=== PATIENT | female | born 1955 | race Caucasian/White ===

== ENCOUNTER 2017-08-26 13:49 | Inpatient (IN) | payer MEDICAID, OTHER ==
[~2017-08-26] VITALS: Ht 152.4 cm; Wt 68.5 kg
[2017-08-26 14:54] LABS: Basophils # (auto) 0.1 uL; Basophils % (auto) 0.3 % (0.0-2.0); Eosinophils # (auto) 0.1 uL; Eosinophils % (auto) 0.4 % (0.0-7.0); Hematocrit 40.4 % (36.0-46.0); Hemoglobin 13.1 g/dL (12.2-16.2); Lymphocytes # (auto) 2.8 uL; Lymphocytes % (auto) 9.8 % (10.0-50.0); Mean Corpuscular Hemoglobin 29.7 pg (28.0-32.0); Mean Corpuscular Hgb Conc. 32.4 g/dL (32.0-36.0); Mean Corpuscular Volume 91.8 fL (80.0-100.0); Monocytes # (auto) 1.9 uL; Monocytes % (auto) 6.5 % (0.0-12.0); Neutrophils # (auto) 23.8 uL; Platelet Count (auto) 301 10^3/uL (140-450); Red Cell Distribution Width 14.6 % (11.8-14.3); White Blood Cell 28.6 10^3/uL (4.4-10.8)
[2017-08-26] MEDS ORDERED: IPRATROPIUM BROM 0.5 MG/2.5ML INH SOL HHN ONE (15:15)
[2017-08-26] MEDS ORDERED: ALBUTEROL SULF 2.5 MG/0.5ML(0.5%) NEB SOLN HHN ONE (15:15)
[2017-08-26] MEDS ORDERED: cefTRIAXone 1GM/10ml IVPUSH 10 ML IV ONE (15:15)
[2017-08-26] MEDS ORDERED: methylPREDNISolone SOD SUCC 125 MG/2 ML VL IV ONE (15:15)
[2017-08-26 16:18] LABS: Alanine Aminotransferase 24 U/L (13-56); Albumin 3.5 g/dL (3.4-5.0); Anion Gap 11 (5-15); Aspartate Aminotransferase 21 U/L (15-37); BUN/Creatinine Ratio 15.9; Blood Urea Nitrogen 10 mg/dL (7-18); Calcium 8.9 mg/dL (8.5-10.1); Carbon Dioxide 26 mmol/L (21-32); Chloride 103 mmol/L (98-107); GFR African American 124 mL/min; GFR Non-African American 102 mL/min; Glucose 100 mg/dL (74-106); Sodium 140 mmol/L (136-145)
[2017-08-26 16:23] LABS: Alkaline Phosphatase 96 U/L (45-117); Total Protein 6.7 g/dL (6.4-8.2)
[2017-08-26] MEDS: SODIUM CHLORIDE 0.9% 1,000 ML IV SCH (17:41)
[2017-08-26] MEDS ORDERED: MORPHINE SULFATE 8mg/ml INJ SDV IV PRN ×2 (17:45)
[2017-08-26] MEDS ORDERED: ACETAMINOPHEN 500 MG TAB PO PRN (17:45)
[2017-08-26] MEDS ORDERED: TEMAZEPAM 15 MG CAP PO PRN (17:45)
[2017-08-26] MEDS ORDERED: VANCOMYCIN PER PHARMACY 0 MG IV SCH (17:45)
[2017-08-26] MEDS ORDERED: VANCOMYCIN 1GM/250ML 250 ML IV ONE (17:45)
[2017-08-26] MEDS ORDERED: LORazepam 0.5 MG TAB PO PRN (17:45)
[2017-08-26] MEDS ORDERED: NITROGLYCERIN 0.4 MG SL TAB SL PRN (17:45)
[2017-08-26] MEDS ORDERED: HYDROcodone-ACET 5/325MG TAB PO PRN (17:45)
[2017-08-26] MEDS ORDERED: PROMETHAZINE HCL 25 MG/ML 1ML IV PRN (17:45)
[2017-08-26] MEDS ORDERED: LACTULOSE 20Gm/30ML SOLN PO PRN (17:45)
[2017-08-26] MEDS: methylPREDNISolone SOD SUCC 40 MG/ML VL IV SCH (18:00)
[2017-08-26] MEDS: IPRATROPIUM BROM 0.5 MG/2.5ML INH SOL NEB SCH (18:34)
[2017-08-26] MEDS: ALBUTEROL SULF 2.5 MG/0.5ML(0.5%) NEB SOLN NEB SCH (18:34)
[2017-08-26 20:15] VITALS: BP 106/59
[2017-08-26] MEDS: AZITHROMYCIN 500MG/ 250ML 250 ML IV SCH (21:15)
[2017-08-26] MEDS: ALBUTEROL SULF 2.5 MG/0.5ML(0.5%) NEB SOLN NEB PRN (21:23)
[2017-08-27] MEDS: methylPREDNISolone SOD SUCC 40 MG/ML VL IV SCH ×4 (00:23→18:28)
[2017-08-27] MEDS: IPRATROPIUM BROM 0.5 MG/2.5ML INH SOL NEB SCH ×5 (00:49→23:33)
[2017-08-27] MEDS: ALBUTEROL SULF 2.5 MG/0.5ML(0.5%) NEB SOLN NEB SCH ×5 (00:49→23:33)
[2017-08-27 01:11] LABS: Urine Bacteria MOD /hpf (None Seen); Urine Blood Negative /uL (Negative); Urine Mucus FEW (None Seen); Urine WBC 6 /hpf (0 - 5)
[2017-08-27] MEDS: ALBUTEROL SULF 2.5 MG/0.5ML(0.5%) NEB SOLN NEB PRN (04:38)
[2017-08-27] MEDS ORDERED: VANCOMYCIN 1GM/250ML 250 ML IV SCH (06:00)
[2017-08-27] MEDS: SODIUM CHLORIDE 0.9% 1,000 ML IV SCH ×2 (06:26→20:21)
[2017-08-27 06:58] LABS: Basophils # (auto) 0 uL; Eosinophils # (auto) 0 uL; Hematocrit 37.8 % (36.0-46.0); Lymphocytes # (auto) 0.6 uL; Lymphocytes % (auto) 3.1 % (10.0-50.0); Mean Corpuscular Hemoglobin 29.5 pg (28.0-32.0); Mean Corpuscular Hgb Conc. 31.9 g/dL (32.0-36.0); Mean Corpuscular Volume 92.7 fL (80.0-100.0); Monocytes # (auto) 0.2 uL; Monocytes % (auto) 1.2 % (0.0-12.0); Neutrophils # (auto) 18.9 uL; Neutrophils % (auto) 95.7 % (37.0-80.0); Platelet Count (auto) 261 10^3/uL (140-450); Red Blood Cells 4.08 10^6/uL (4.0-5.20); Red Cell Distribution Width 14.2 % (11.8-14.3); White Blood Cell 19.8 10^3/uL (4.4-10.8)
[2017-08-27] MEDS: cefTRIAXone 1GM/10ml IVPUSH 10 ML IV SCH (10:00)
[2017-08-27] MEDS: ENOXAPARIN SOD 40 MG/0.4 ML SYRINGE SC SCH (10:30)
[2017-08-27] MEDS: AZITHROMYCIN 500MG/ 250ML 250 ML IV SCH (10:30)
[2017-08-27 13:00] VITALS: BP 100/63
[2017-08-27 17:00] VITALS: BP 94/61
[2017-08-27] MEDS ORDERED: FLUT250M2 INH (19:00)
[2017-08-27] MEDS ORDERED: IPRA1SOL3 IN (19:17)
[2017-08-27] MEDS ORDERED: MIRT15TA PO (19:17)
[2017-08-27] MEDS ORDERED: NAS17NSL (19:17)
[2017-08-27] MEDS ORDERED: PAR20T GT (19:17)
[2017-08-27] MEDS ORDERED: LORA-622 PO (19:17)
[2017-08-27] MEDS ORDERED: TIOTCAP IN (19:17)
[2017-08-27 22:00] VITALS: BP 91/50
[2017-08-28] MEDS: methylPREDNISolone SOD SUCC 40 MG/ML VL IV SCH ×3 (00:19→12:06)
[2017-08-28 05:00] VITALS: BP 94/45
[2017-08-28] MEDS: IPRATROPIUM BROM 0.5 MG/2.5ML INH SOL NEB SCH ×3 (05:48→19:00)
[2017-08-28] MEDS: ALBUTEROL SULF 2.5 MG/0.5ML(0.5%) NEB SOLN NEB SCH ×3 (05:49→19:01)
[2017-08-28 06:04] LABS: Hematocrit 33.2 % (36.0-46.0); Hemoglobin 10.6 g/dL (12.2-16.2); Mean Corpuscular Hemoglobin 29.7 pg (28.0-32.0); Mean Corpuscular Volume 92.6 fL (80.0-100.0); Platelet Count (auto) 249 10^3/uL (140-450); Red Blood Cells 3.58 10^6/uL (4.0-5.20); Red Cell Distribution Width 14.5 % (11.8-14.3)
[2017-08-28 06:19] LABS: Basophils % (manual) 0 (0.0-2.0); Blast Cells 0; Eosinophils % (manual) 0 (0-7); Metamyelocytes % 0; Myelocytes % 0; Promyelocytes % 0; Reactive Lymphocytes 0
[2017-08-28 06:33] LABS: Albumin 2.6 g/dL (3.4-5.0); BUN/Creatinine Ratio 33.3; Bilirubin, Total 0.2 mg/dL (0.2-1.0); Calcium 8.5 mg/dL (8.5-10.1); Potassium 4.1 mmol/L (3.5-5.1); Total Protein 5.5 g/dL (6.4-8.2)
[2017-08-28 08:42] LABS: Band Neutrophils % (manual) 1; Lymphocytes % (manual) 1 (10.0-50.0); Monocytes % (manual) 2 (0-12)
[2017-08-28 09:03] VITALS: BP 91/55
[2017-08-28] MEDS: SODIUM CHLORIDE 0.9% 1,000 ML IV SCH ×2 (10:24→23:01)
[2017-08-28] MEDS: ENOXAPARIN SOD 40 MG/0.4 ML SYRINGE SC SCH (10:25)
[2017-08-28] MEDS: AZITHROMYCIN 500MG/ 250ML 250 ML IV SCH (10:25)
[2017-08-28] MEDS: cefTRIAXone 1GM/10ml IVPUSH 10 ML IV SCH (10:25)
[2017-08-28 13:05] VITALS: BP 106/60
[2017-08-28 16:55] VITALS: BP 98/59
[2017-08-28] MEDS: MIRTAZAPINE 30 MG TAB PO SCH (21:40)
[2017-08-28] MEDS: PARoxetine 20 MG TAB PO SCH (21:40)
[2017-08-28] MEDS: ALBUTEROL SULF 2.5 MG/0.5ML(0.5%) NEB SOLN NEB PRN (21:47)
[2017-08-28 22:00] VITALS: BP 97/55
[2017-08-28] MEDS ORDERED: guaiFENesin 200 MG/10 ML UD PO PRN (23:45)
[2017-08-29] MEDS: ACETYLCYSTEINE 10 %(100MG/ML) SOL 4ML NEB SCH ×4 (00:30→19:57)
[2017-08-29] MEDS: ALBUTEROL SULF 2.5 MG/0.5ML(0.5%) NEB SOLN NEB SCH ×4 (00:31→19:56)
[2017-08-29] MEDS: IPRATROPIUM BROM 0.5 MG/2.5ML INH SOL NEB SCH ×4 (00:31→19:56)
[2017-08-29 05:00] VITALS: BP 106/61
[2017-08-29 05:41] LABS: Basophils # (auto) 0 uL; Basophils % (auto) 0.1 % (0.0-2.0); Eosinophils # (auto) 0 uL; Hematocrit 30.1 % (36.0-46.0); Hemoglobin 9.8 g/dL (12.2-16.2); Lymphocytes # (auto) 1.6 uL; Lymphocytes % (auto) 6.4 % (10.0-50.0); Mean Corpuscular Hemoglobin 30.1 pg (28.0-32.0); Mean Corpuscular Hgb Conc. 32.5 g/dL (32.0-36.0); Mean Corpuscular Volume 92.7 fL (80.0-100.0); Monocytes # (auto) 1.5 uL; Monocytes % (auto) 5.8 % (0.0-12.0); Neutrophils # (auto) 22.3 uL; Neutrophils % (auto) 87.7 % (37.0-80.0); Platelet Count (auto) 253 10^3/uL (140-450); Red Blood Cells 3.25 10^6/uL (4.0-5.20); Red Cell Distribution Width 14.5 % (11.8-14.3); White Blood Cell 25.5 10^3/uL (4.4-10.8)
[2017-08-29 06:09] LABS: Albumin 2.5 g/dL (3.4-5.0); BUN/Creatinine Ratio 32.1; Bilirubin, Total 0.1 mg/dL (0.2-1.0); Calcium 8.4 mg/dL (8.5-10.1); Potassium 3.9 mmol/L (3.5-5.1); Total Protein 5.1 g/dL (6.4-8.2)
[2017-08-29 08:00] VITALS: BP 109/65
[2017-08-29 09:07] VITALS: BP 109/65
[2017-08-29] MEDS: methylPREDNISolone SOD SUCC 40 MG/ML VL IV SCH ×2 (09:43→21:51)
[2017-08-29] MEDS: cefTRIAXone 1GM/10ml IVPUSH 10 ML IV SCH (09:43)
[2017-08-29] MEDS: AZITHROMYCIN 500MG/ 250ML 250 ML IV SCH (09:44)
[2017-08-29] MEDS: ENOXAPARIN SOD 40 MG/0.4 ML SYRINGE SC SCH (09:44)
[2017-08-29] MEDS: SODIUM CHLORIDE 0.9% 1,000 ML IV SCH (12:21)
[2017-08-29 13:01] VITALS: BP 101/73
[2017-08-29 17:15] VITALS: BP 111/66
[2017-08-29] MEDS: PARoxetine 20 MG TAB PO SCH (21:51)
[2017-08-29] MEDS: MIRTAZAPINE 30 MG TAB PO SCH (21:52)
[2017-08-29 22:00] VITALS: BP 123/75
[2017-08-30] MEDS: ALBUTEROL SULF 2.5 MG/0.5ML(0.5%) NEB SOLN NEB SCH ×4 (01:10→18:23)
[2017-08-30] MEDS: IPRATROPIUM BROM 0.5 MG/2.5ML INH SOL NEB SCH ×4 (01:10→18:23)
[2017-08-30] MEDS: ACETYLCYSTEINE 10 %(100MG/ML) SOL 4ML NEB SCH ×4 (01:10→18:23)
[2017-08-30] MEDS: SODIUM CHLORIDE 0.9% 1,000 ML IV SCH ×3 (01:41→19:39)
[2017-08-30 04:25] VITALS: BP 123/75
[2017-08-30 05:00] VITALS: BP 111/58
[2017-08-30 05:59] LABS: Basophils # (auto) 0 uL; Basophils % (auto) 0.1 % (0.0-2.0); Eosinophils # (auto) 0 uL; Hematocrit 31.6 % (36.0-46.0); Hemoglobin 10.1 g/dL (12.2-16.2); Lymphocytes # (auto) 0.7 uL; Mean Corpuscular Hemoglobin 29.8 pg (28.0-32.0); Mean Corpuscular Hgb Conc. 31.9 g/dL (32.0-36.0); Mean Corpuscular Volume 93.4 fL (80.0-100.0); Monocytes # (auto) 0.3 uL; Monocytes % (auto) 2.5 % (0.0-12.0); Neutrophils # (auto) 11.3 uL; Neutrophils % (auto) 91.4 % (37.0-80.0); Platelet Count (auto) 251 10^3/uL (140-450); Red Blood Cells 3.38 10^6/uL (4.0-5.20); Red Cell Distribution Width 14.5 % (11.8-14.3); White Blood Cell 12.3 10^3/uL (4.4-10.8)
[2017-08-30 06:09] LABS: Albumin 2.5 g/dL (3.4-5.0); Calcium 8.2 mg/dL (8.5-10.1); Potassium 3.9 mmol/L (3.5-5.1)
[2017-08-30 06:11] LABS: Bilirubin, Total 0.2 mg/dL (0.2-1.0); Total Protein 5.4 g/dL (6.4-8.2)
[2017-08-30 09:00] VITALS: BP 123/72
[2017-08-30] MEDS: cefTRIAXone 1GM/10ml IVPUSH 10 ML IV SCH (09:48)
[2017-08-30] MEDS: ENOXAPARIN SOD 40 MG/0.4 ML SYRINGE SC SCH (09:48)
[2017-08-30] MEDS: AZITHROMYCIN 500MG/ 250ML 250 ML IV SCH (09:48)
[2017-08-30] MEDS: methylPREDNISolone SOD SUCC 40 MG/ML VL IV SCH ×2 (09:48→21:41)
[2017-08-30 13:00] VITALS: BP 121/61
[2017-08-30 16:59] VITALS: BP 112/61
[2017-08-30] MEDS: PARoxetine 20 MG TAB PO SCH (21:41)
[2017-08-30] MEDS: MIRTAZAPINE 30 MG TAB PO SCH (21:42)
[2017-08-30 22:00] VITALS: BP 113/55
[2017-08-31] MEDS: IPRATROPIUM BROM 0.5 MG/2.5ML INH SOL NEB SCH ×3 (00:22→11:59)
[2017-08-31] MEDS: ALBUTEROL SULF 2.5 MG/0.5ML(0.5%) NEB SOLN NEB SCH ×3 (00:22→12:00)
[2017-08-31] MEDS: ACETYLCYSTEINE 10 %(100MG/ML) SOL 4ML NEB SCH ×3 (00:22→12:00)
[2017-08-31 05:00] VITALS: BP 113/61
[2017-08-31 08:00] VITALS: BP 111/53
[2017-08-31 08:36] VITALS: BP 111/53
[2017-08-31] MEDS: cefTRIAXone 1GM/10ml IVPUSH 10 ML IV SCH (08:39)
[2017-08-31] MEDS: methylPREDNISolone SOD SUCC 40 MG/ML VL IV SCH (08:39)
[2017-08-31] MEDS: ENOXAPARIN SOD 40 MG/0.4 ML SYRINGE SC SCH (08:39)
[2017-08-31] MEDS: AZITHROMYCIN 500MG/ 250ML 250 ML IV SCH (08:40)
[2017-08-31 12:56] VITALS: BP 123/63
[2017-08-31] MEDS: ALBUTEROL SULF 2.5 MG/0.5ML(0.5%) NEB SOLN NEB PRN (16:32)
[2017-08-31 17:20] VITALS: BP 121/56
== END 2017-08-31 19:00 | disposition home or self-care (01) | DRG 140 ==
LOC: ER 13:49 → OVERFLOW 13:50 → TELE-WESTW 08-27 12:15
PROVIDERS: ADMIT Internal Medicine; ATTEND Internal Medicine
DX: J44.1 Chronic obstructive pulmonary disease with (acute) exacerbation (principal); E43 Unspecified severe protein-calorie malnutrition; J96.11 Chronic respiratory failure with hypoxia; Z99.81 Dependence on supplemental oxygen; F32.9 Major depressive disorder, single episode, unspecified; F41.9 Anxiety disorder, unspecified; D64.9 Anemia, unspecified; F17.210 Nicotine dependence, cigarettes, uncomplicated; Z90.710 Acquired absence of both cervix and uterus; Z82.49 Family history of ischemic heart disease and other diseases of the circulatory system; Z71.6 Tobacco abuse counseling; Z68.29 Body mass index [BMI] 29.0-29.9, adult
CPT/HCPCS: 36415; 36600; 71046; 80053; 81001; 82565; 82805; 83605; 83735; 83880; 84484; 85007; 85025; 85027; 87040; 87086; 93005; 94640; 96361; 96365; 96375; G0378

== ENCOUNTER 2018-07-13 11:55 | Inpatient (IN) | payer MEDICAID | END 2018-07-21 11:45 | disposition home or self-care (01) | LOC: ER 11:55 → TELE 13:51 → TELE-EAST 18:20 | DX: A41.9 Sepsis, unspecified organism (principal); I26.99 Other pulmonary embolism without acute cor pulmonale; J96.10 Chronic respiratory failure, unspecified whether with hypoxia or hypercapnia; J44.0 Chronic obstructive pulmonary disease with (acute) lower respiratory infection; J18.9 Pneumonia, unspecified organism; J45.901 Unspecified asthma with (acute) exacerbation; J44.1 Chronic obstructive pulmonary disease with (acute) exacerbation; F32.9 Major depressive disorder, single episode, unspecified; F41.9 Anxiety disorder, unspecified; M81.0 Age-related osteoporosis without current pathological fracture; E11.9 Type 2 diabetes mellitus without complications ==

== ENCOUNTER → 2019-11-29 | Outpatient (CLI) | payer OTHER, MEDICAID ==
[~2019-11-29] MED LIST: FLUT250M2 INH; IPRA0.00 IN; LORA-622 PO; MIRT15TA PO; NAS17NSL; PAR20T GT; TIOTCAP IN
== END | disposition home or self-care (01) ==
LOC: RT 11:20
DX: R79.81 Abnormal blood-gas level (principal); Z79.899 Other long term (current) drug therapy; Z98.890 Other specified postprocedural states
CPT/HCPCS: 36600; 82805

== ENCOUNTER 2020-01-21 23:51 | Inpatient (IN) | payer OTHER, MEDICAID ==
[~2020-01-21] VITALS: Ht 152.4 cm; Wt 63.7 kg
[2020-01-22 02:04] LABS: Basophils # (auto) 0 10 ^3/uL (0-0.2); Basophils % (auto) 0.3 % (0.0-2.0); Eosinophils # (auto) 0.1 10 ^3/uL (0-0.8); Eosinophils % (auto) 0.8 % (0.0-7.0); Hemoglobin 12.7 g/dL (12.2-16.2); Lymphocytes # (auto) 1.9 10 ^3/uL (0.4-5.4); Lymphocytes % (auto) 15.6 % (10.0-50.0); Mean Corpuscular Hemoglobin 29.7 pg (28.0-32.0); Mean Corpuscular Hgb Conc. 32.5 g/dL (32.0-36.0); Mean Corpuscular Volume 91.4 fL (80.0-100.0); Monocytes # (auto) 0.7 10 ^3/uL (0-1.3); Monocytes % (auto) 5.6 % (0.0-12.0); Neutrophils # (auto) 9.4 10 ^3/uL (1.6-8.6); Neutrophils % (auto) 77.7 % (37.0-80.0); Platelet Count (auto) 235 10^3/uL (140-450); Red Blood Cells 4.26 10^6/uL (4.0-5.20); Red Cell Distribution Width 13.8 % (11.8-14.3)
[2020-01-22 02:22] LABS: Albumin 3.8 g/dL (3.4-5.0); BUN/Creatinine Ratio 13.6; Calcium 9.7 mg/dL (8.5-10.1); Potassium 3.4 mmol/L (3.5-5.1)
[2020-01-22 02:24] LABS: Bilirubin, Total 0.2 mg/dL (0.2-1.0); Total Protein 7.2 g/dL (6.4-8.2)
[2020-01-22 05:53] LABS: INR 0.93 (0.9-1.15); Partial Thromboplastin Time 24.4 sec (23.0-31.2)
[2020-01-22] MEDS ORDERED: ACETAMINOPHEN 325 MG TAB PO PRN (06:45)
[2020-01-22] MEDS ORDERED: ONDANSETRON HCL 4 MG/2 ML VIAL IV PRN (06:45)
[2020-01-22] MEDS ORDERED: TEMAZEPAM 15 MG CAP PO PRN (06:45)
[2020-01-22] MEDS: FAMOTIDINE 20 MG TAB PO SCH (10:10)
[2020-01-22] MEDS: PARoxetine 20 MG TAB PO SCH ×2 (10:11→10:16)
[2020-01-22] MEDS: ENOXAPARIN SOD 40 MG/0.4 ML SYRINGE SC SCH (10:11)
[2020-01-22 10:24] LABS: Urine Bacteria NONE SEEN /hpf (None Seen); Urine Blood Negative /uL (Negative); Urine Mucus FEW (None Seen); Urine Specific Gravity 1.024 (1.001-1.035); Urine WBC 78 /hpf (0 - 5)
[2020-01-22] MEDS ORDERED: ALBUTEROL SULF 2.5 MG/0.5ML(0.5%) NEB SOLN NEB SCH (12:00)
[2020-01-22] MEDS ORDERED: IPRATROPIUM BROM 0.5 MG/2.5ML INH SOL NEB SCH (12:00)
[2020-01-22 14:05] VITALS: BP 142/97
--- NOTE | 2020-01-22 14:20 | NUR ---
MS admit from ER NEO ZAVALA admitted to tele/MS after SBAR received. Patient oriented to Silva White, primary RN, unit, room, bed, and unit policies regarding patient care and visiting hours. Patient weighed by bedscale and encouraged to call if they need something. All questions and concerns addressed, patient verbalized understanding. Note:
[2020-01-22] MEDS ORDERED: SIMV-8 PO (14:28)
[2020-01-22] MEDS ORDERED: DILT-14 PO (14:28)
--- NOTE | 2020-01-22 17:09 | NUR ---
ASSUMED CARE OF PATIENT FROM ELBA TOWNSEND. PHYSICAL ASSESSMENT PERFORMED. NO SIGNS OR SYMPTOMS OF RESPIRATORY DISTRESS NOTED AT THIS TIME.
[2020-01-22 17:11] VITALS: BP 135/66
[2020-01-22] MEDS: ALBUTEROL SULF 2.5 MG/0.5ML(0.5%) NEB SOLN NEB SCH ×2 (18:52→22:10)
[2020-01-22] MEDS: BUDESONIDE (INHALATION) 0.5 MG/2 ML NEB NEB SCH (18:53)
[2020-01-22] MEDS: IPRATROPIUM BROM 0.5 MG/2.5ML INH SOL NEB SCH ×2 (18:53→22:10)
--- NOTE | 2020-01-22 19:13 | NUR ---
CLOSING NOTE ENDORSED CARE TO NOC SHIFT RN
--- NOTE | 2020-01-22 19:59 | NUR ---
Opening Shift Note Assumed care of patient, awake and alert. No S/S of distress/SOB or pain. Instructed on POC and to call for assist PRN, will continue to monitor for changes Q1hr and PRN. bed in low position and call light within reach
--- NOTE | 2020-01-22 20:06 | NUR ---
paged hospitalist. patient requesting ativan per patient she takes ativan 0.5mg po at home. patient requesting cpap as she uses cpap at home for sleep apnea. awaiting call back
--- NOTE | 2020-01-22 21:13 | NUR ---
patient made aware of HUMAN RESOURCES INTERN orders. patient stated " that is okay" patient stated she does not want Restoril at this time.
--- NOTE | 2020-01-22 21:13 | NUR ---
spoke with hospitalist new orders received for cpap management. informed hospitalist Skylar patient requesting ativan for anxiety. no new orders received for ativan per MARKETING DATABASE CONSULTANT skylar give Restoril 15mg po. Patient has scheduled Restoril prn already in [facility]. orders read back and verified by ALYSSA cheng.
[2020-01-22 22:00] VITALS: BP 108/68
[2020-01-22] MEDS: methylPREDNISolone SOD SUCC 40 MG/ML VL IV SCH (22:11)
--- NOTE | 2020-01-22 22:41 | NUR ---
IS at bedside patient verbalized understanding on how to perform IS. patient also stated " i know how i have used one before"
[2020-01-23] MEDS: IPRATROPIUM BROM 0.5 MG/2.5ML INH SOL NEB SCH ×6 (02:00→23:22)
[2020-01-23] MEDS: ALBUTEROL SULF 2.5 MG/0.5ML(0.5%) NEB SOLN NEB SCH ×6 (02:00→23:21)
[2020-01-23 05:00] VITALS: BP 104/52
[2020-01-23 05:38] LABS: Basophils # (auto) 0 10 ^3/uL (0-0.2); Eosinophils # (auto) 0 10 ^3/uL (0-0.8); Hematocrit 37.2 % (36.0-46.0); Lymphocytes # (auto) 0.8 10 ^3/uL (0.4-5.4); Lymphocytes % (auto) 11.7 % (10.0-50.0); Mean Corpuscular Hemoglobin 29.8 pg (28.0-32.0); Mean Corpuscular Hgb Conc. 32.2 g/dL (32.0-36.0); Mean Corpuscular Volume 92.6 fL (80.0-100.0); Monocytes # (auto) 0 10 ^3/uL (0-1.3); Monocytes % (auto) 0.7 % (0.0-12.0); Neutrophils % (auto) 87.6 % (37.0-80.0); Platelet Count (auto) 227 10^3/uL (140-450); Red Blood Cells 4.01 10^6/uL (4.0-5.20); Red Cell Distribution Width 14.1 % (11.8-14.3); White Blood Cell 6.8 10^3/uL (4.4-10.8)
[2020-01-23 06:00] LABS: BUN/Creatinine Ratio 15.9; Calcium 9.4 mg/dL (8.5-10.1); Magnesium 2.4 mg/dL (1.6-2.6); Potassium 3.9 mmol/L (3.5-5.1)
[2020-01-23 06:02] LABS: Cholesterol 184 mg/dL (< 200); HDL Cholesterol 72 mg/dL (40-59); LDL Cholesterol 103 mg/dL (< 100); Triglycerides 52 mg/dL (< 150)
[2020-01-23] MEDS: BUDESONIDE (INHALATION) 0.5 MG/2 ML NEB NEB SCH ×2 (06:26→23:21)
--- NOTE | 2020-01-23 07:01 | NUR ---
Report given to dayshift RN patient is awake and alert.Denies sob distress or pain.
--- NOTE | 2020-01-23 07:05 | NUR ---
Opening Shift Note Assumed care of patient, awake and alert. No S/S of distress/SOB or pain. Instructed on POC and to call for assist PRN, will continue to monitor for changes Q1hr and PRN. Bed locked in lowest position, HOB elevated at least 30 degrees, call light is within reach and side rails up x 2.
[2020-01-23 09:00] VITALS: BP 111/63
[2020-01-23] MEDS: methylPREDNISolone SOD SUCC 40 MG/ML VL IV SCH ×2 (09:20→21:54)
[2020-01-23] MEDS: dilTIAZem 120MG ER CAP PO SCH (09:21)
[2020-01-23] MEDS: ENOXAPARIN SOD 40 MG/0.4 ML SYRINGE SC SCH (09:22)
[2020-01-23] MEDS: FAMOTIDINE 20 MG TAB PO SCH (09:22)
--- NOTE | 2020-01-23 09:30 | NUR ---
Called/paged Dr. Powers called regarding patient's request for ativan. Waiting for call back. Continue care. Addendum: 01/23/20 at 1440 by TATIANNA VALENTIN RN RN incorrect time for note. correct time is 1430
--- NOTE | 2020-01-23 10:12 | NUR ---
ROUNDS DR DONATO AT BEDSIDE. NO NEW ORDERS AT THIS TIME. CONTINUE CARE.
[2020-01-23 13:00] VITALS: BP 106/48
[2020-01-23] MEDS ORDERED: LORazepam 0.5 MG TAB PO PRN (15:45)
[2020-01-23 17:00] VITALS: BP 115/58
--- NOTE | 2020-01-23 18:39 | NUR ---
RT NOTE PT WAS SEEN BY RT FOR HHN TX. PT TOLERATES WELL VIA MASK. NO ADVERSE REACTION NOTED. PT IS ON CONT PULSE OX #10 AND HAS HOSPITAL OWNED HOME CPAP UNIT RESPIRATORY 2 AT BEDSIDE. CONT ORDERED Addendum: 01/23/20 at 1840 by Ashanti Guerra RT Amended: Links added.
--- NOTE | 2020-01-23 19:22 | NUR ---
Opening Shift Note Assumed care of patient after receiving report from CARY Fu. Patient is awake and alert with no S/S of distress/SOB or pain. Call light within reach, bed in lowest locked position x2 side rails, HOB semi fowlers. Instructed on POC and to call for assist PRN, will continue to monitor for changes Q1hr and PRN.
--- NOTE | 2020-01-23 19:23 | NUR ---
CLOSING NOTE ENDORSED CARE TO NOC SHIFT RN
[2020-01-23 22:00] VITALS: BP 130/72
[2020-01-23] MEDS ORDERED: PARoxetine 20 MG TAB PO SCH (22:00)
[2020-01-23] MEDS ORDERED: MIRTAZAPINE 30 MG TAB PO SCH (22:00)
--- NOTE | 2020-01-23 22:35 | NUR ---
RT NOTE PT WAS SEEN BY RT FOR HHN TX AND CPAP PLACEMENT. PT TOLERATES HHN WELL VIA MASK WHILE RT SETS UP CPAP. NO ADVERSE REACTION NOTED. CONT ORDERED Addendum: 01/23/20 at 2335 by Ashanti Guerra RT Amended: Links added.
--- NOTE | 2020-01-23 22:42 | NUR ---
RT NOTE PT PLACED ON HOSPITAL OWNED CPAP UNIT #RESPIRATORY2 ON AUTO PAP 5- 15 CMH20 WITH SMALL MASK. PT STATES SHE WANTS TO WEAR HER NASAL CANNULA UNDER HER MASK LIKE SHE DOES AT HOME AND NOT BLEED IN. PT AWARE OF IT NOT BEING ROUTINE, BUT STATES THAT IS THE ONLY WAY SHE IS COMFORTABLE. PT IS ON BEDSIDE POX #10 PER PROTOCOL. CARY HAMPTON AWARE PT IS ON CPAP. ALSO INFORMED RN THAT PT IS REQUESTING FLU AND PNA VACCINE. CONT ORDERED. POX 98% Addendum: 01/23/20 at 2335 by Ashanti Guerra RT Amended: Links added.
--- NOTE | 2020-01-24 00:22 | NUR ---
RT NOTE ROUTINE CPAP CHECK DONE. PT IS ON HOSPITAL OWNED CPAP UNIT #RESPIRATORY2 ON AUTO PAP 5- 15 CMH20 WITH SMALL MASK. PT IS ON BEDSIDE POX #10 PER PROTOCOL.WATER LEVEL IS ADEQUATE AND HUMIDIFIER IS SET TO 1. MASK WAS ADJUSTED FOR BETTER FIT. CONT ORDERED. POX 98% Addendum: 01/24/20 at 0028 by Ashanti Guerra RT Amended: Links added.
--- NOTE | 2020-01-24 00:58 | NUR ---
RT NOTE PT WAS SEEN BY RT FOR CPAP REMOVAL. PT STATES SHE CANNOT SLEEP WITH IT TONIGHT. PT IS ON 3L NASAL CANNULA AND ON BEDSIDE POX. CONT ORDERED
[2020-01-24] MEDS ORDERED: PNEUMOCOCCAL VACC POLYS 25 MCG/0.5 ML VIAL IM ONE (01:15)
[2020-01-24] MEDS: ALBUTEROL SULF 2.5 MG/0.5ML(0.5%) NEB SOLN NEB SCH ×4 (02:14→14:16)
[2020-01-24] MEDS: IPRATROPIUM BROM 0.5 MG/2.5ML INH SOL NEB SCH ×4 (02:14→14:16)
--- NOTE | 2020-01-24 02:14 | NUR ---
RT NOTE PT WAS SEEN BY RT FOR HHN TX. PT TOLERATES WELL VIA MASK. NO ADVERSE REACTION NOTED. CONT ORDERED Addendum: 01/24/20 at 0245 by Ashanti Guerra RT Amended: Links added.
[2020-01-24 05:00] VITALS: BP 118/68
[2020-01-24] MEDS: BUDESONIDE (INHALATION) 0.5 MG/2 ML NEB NEB SCH (06:17)
--- NOTE | 2020-01-24 07:30 | NUR ---
Opening Shift Note Assumed care of patient, awake and alert. Respirations are even and unlabored. No S/S of distress/SOB or pain. On oxygen at 3LPM via nasal cannula with continuos pulse oximetry monitoring. Current O2 saturations 97%. Bed is low, locked with 2x side rails up. Call light is within reach. Instructed on POC and to call for assist PRN, will continue to monitor for changes Q1hr and PRN.
[2020-01-24 08:45] VITALS: BP 112/65
[2020-01-24] MEDS: FAMOTIDINE 20 MG TAB PO SCH (09:22)
[2020-01-24] MEDS: ENOXAPARIN SOD 40 MG/0.4 ML SYRINGE SC SCH (09:23)
[2020-01-24] MEDS: dilTIAZem 120MG ER CAP PO SCH (09:23)
[2020-01-24] MEDS: methylPREDNISolone SOD SUCC 40 MG/ML VL IV SCH (09:23)
--- NOTE | 2020-01-24 11:10 | NUR ---
Nutrition Assessment Note please see attached link for complete Est Energy needs BW 63 [id number] kcals (23-25 kcal/kgBW), Est Protein needs: 63-69 gms/day (1.0-1.1 gm/kgBW). Will continue to monitor and reassess prn. Addendum: 01/24/20 at [address] Amended: Links added.
[2020-01-24 12:54] VITALS: BP 123/68
--- NOTE | 2020-01-24 13:05 | NUR ---
Cleared from cardio Dr. Dooley cleared patient for discharge.
--- NOTE | 2020-01-24 13:25 | NUR ---
Spoke with Dr. Powers Informed MD that Dr. Dooley has cleared patient for discharge. MD to input orders for discharge.
[2020-01-24] MEDS ORDERED: PRED20TA2 PO (13:37)
--- NOTE | 2020-01-24 15:56 | NUR ---
ss consult Per ss consult resume palliative care at home with [facility]. MD order has been sent to [facility]iative [facility]. Per Kathy service will resume within 48 hours. Addendum: 01/24/20 at 1558 by Alyx MELENDEZ Amended: Links added.
[2020-01-24 16:01] VITALS: BP 131/71
[2020-01-24 16:30] VITALS: BP 131/71
--- NOTE | 2020-01-24 17:00 | NUR ---
Discharge instructions given as ordered. Encourage to follow up with PMD as instructed. All questions and concerns addressed. Patient verbalized understanding. Patient encouraged to follow up with PCP, Social Media Marketer, and trimming department blocker. Verbalized understanding. Pneumococcal vaccine given as per MD orders. IV removed with catheter intact, pressure dressing applied. Patient taken to vehicle via wheelchair with all personal belongings, accompanied by staff and family member. No distress noted at time of departure.
== END 2020-01-24 17:00 | disposition home or self-care (01) | DRG 189 ==
LOC: EDBD 23:51 → EDUNIT# 23:51 → ER 23:51 → OVERFLOW 23:52 → EAST 01-22 14:20 → CENTRAL 01-22 17:12
PROVIDERS: ADMIT Nurse Practitioner; ATTEND Internal Medicine
PROC: 5A09357 Assistance with Respiratory Ventilation, Less than 24 Consecutive Hours, Continuous Positive Airway Pressure (ICD-10-PCS; principal; 2020-01-22)
PROC: 5A09357 Assistance with Respiratory Ventilation, Less than 24 Consecutive Hours, Continuous Positive Airway Pressure (ICD-10-PCS; 2020-01-23)
DX: J96.21 Acute and chronic respiratory failure with hypoxia (principal); J44.1 Chronic obstructive pulmonary disease with (acute) exacerbation; J45.901 Unspecified asthma with (acute) exacerbation; R65.10 Systemic inflammatory response syndrome (SIRS) of non-infectious origin without acute organ dysfunction; F17.210 Nicotine dependence, cigarettes, uncomplicated; E78.5 Hyperlipidemia, unspecified; F41.9 Anxiety disorder, unspecified; I10 Essential (primary) hypertension; Z20.828 Contact with and (suspected) exposure to other viral communicable diseases; F32.9 Major depressive disorder, single episode, unspecified; Z90.49 Acquired absence of other specified parts of digestive tract; Z82.3 Family history of stroke; Z90.710 Acquired absence of both cervix and uterus; Z86.711 Personal history of pulmonary embolism; Z83.3 Family history of diabetes mellitus; Z80.0 Family history of malignant neoplasm of digestive organs; Z82.49 Family history of ischemic heart disease and other diseases of the circulatory system
CPT/HCPCS: 36415; 71045; 80048; 80053; 80061; 81001; 83735; 83880; 84443; 84484; 85025; 85379; 85610; 85730; 93005; 93306; 94640; 94660; 97163; G0378

== ENCOUNTER 2020-08-29 11:34 | Inpatient (IN) | payer OTHER, MEDICAID ==
[~2020-08-29] VITALS: Ht 152.4 cm; Wt 75.6 kg
[~2020-08-29 11:34] MED LIST changes: +DILT-14 PO; +MIRT-68 PO; -MIRT15TA PO; +PRED20TA2 PO; +SIMV-8 PO
[2020-08-29] MEDS ORDERED: methylPREDNISolone SOD SUCC 125 MG/2 ML VL IV ONE (12:00)
[2020-08-29] MEDS ORDERED: ALBUTEROL SULF 2.5 MG/0.5ML(0.5%) NEB SOLN HHN ONE (12:00)
[2020-08-29] MEDS ORDERED: IPRATROPIUM BROM 0.5 MG/2.5ML INH SOL HHN ONE (12:00)
[2020-08-29 14:05] LABS: Hematocrit 36.8 % (36.0-46.0); Mean Corpuscular Hemoglobin 29.8 pg (28.0-32.0); Mean Corpuscular Hgb Conc. 32.7 g/dL (32.0-36.0); Platelet Count (auto) 273 10^3/uL (140-450); Red Blood Cells 4.04 10^6/uL (4.0-5.20); Red Cell Distribution Width 16.4 % (11.8-14.3); White Blood Cell 17.5 10^3/uL (4.4-10.8)
[2020-08-29 14:08] LABS: Basophils % (manual) 0 (0.0-2.0); Blast Cells 0; Promyelocytes % 0; Reactive Lymphocytes 0
[2020-08-29 14:09] LABS: Albumin 3.2 g/dL (3.4-5.0); Anion Gap 6 (5-15); Blood Urea Nitrogen 21 mg/dL (7-18); Calcium 8.4 mg/dL (8.5-10.1); Carbon Dioxide 34 mmol/L (21-32); Chloride 100 mmol/L (98-107); Glucose 110 mg/dL (74-106); Potassium 3.6 mmol/L (3.5-5.1); Sodium 140 mmol/L (136-145)
[2020-08-29 14:14] LABS: Alanine Aminotransferase 38 U/L (13-56); Alkaline Phosphatase 83 U/L (45-117); Aspartate Aminotransferase 28 U/L (15-37); BUN/Creatinine Ratio 39.6; Bilirubin, Total 0.3 mg/dL (0.2-1.0); GFR African American 150 mL/min; GFR Non-African American 124 mL/min; Total Protein 6.2 g/dL (6.4-8.2)
[2020-08-29] MEDS ORDERED: levoFLOXacin 500MG 100 ML IV ONE (14:15)
[2020-08-29] MEDS ORDERED: MORPHINE SULF INJ 2 MG/ML SYRINGE 1ML IV PRN ×3 (14:45→16:45)
[2020-08-29] MEDS ORDERED: NITROGLYCERIN 0.4 MG SL TAB SL PRN ×2 (14:45→16:45)
[2020-08-29 15:09] LABS: Band Neutrophils % (manual) 5; Eosinophils % (manual) 1 (0-7); Lymphocytes % (manual) 16 (10.0-50.0); Metamyelocytes % 1; Monocytes % (manual) 6 (0-12); Myelocytes % 4
[2020-08-29] MEDS ORDERED: DOXYCYCLINE 100MG/250ML 250 ML IV ONE (16:45)
[2020-08-29] MEDS ORDERED: ONDANSETRON HCL 4 MG/2 ML VIAL IV PRN (16:45)
[2020-08-29] MEDS ORDERED: ALUM & MAG HYDROX-SIMETH LIQ(MAALOX) 30 ML PO PRN (16:45)
[2020-08-29] MEDS ORDERED: FUROSEMIDE 20 MG/2 ML VIAL IV ONE (16:45)
[2020-08-29] MEDS ORDERED: dilTIAZem 120MG ER CAP PO ONE (17:00)
[2020-08-29 17:13] LABS: Urine Bacteria NONE SEEN /hpf (None Seen); Urine Blood Negative /uL (Negative); Urine Mucus FEW (None Seen); Urine Specific Gravity 1.027 (1.001-1.035); Urine WBC 1 /hpf (0 - 5)
[2020-08-29] MEDS: IPRATROPIUM BROM 0.5 MG/2.5ML INH SOL NEB SCH ×2 (19:34→23:10)
[2020-08-29] MEDS: ALBUTEROL SULF 2.5 MG/0.5ML(0.5%) NEB SOLN NEB PRN ×2 (19:34→23:10)
[2020-08-29 19:52] LABS: Alcohol, Urine < 3.0 mg/dL (0-10); Amphetamine Screen, Urine NEGATIVE (NEGATIVE); Barbiturate Scree,Urine NEGATIVE (NEGATIVE); Benzodiazephine Screen, Urine NEGATIVE (NEGATIVE); Cannabinoid Screen, Urine POSITIVE (NEGATIVE); Cocaine Screen, Urine NEGATIVE (NEGATIVE); Opiate Scree,Urine NEGATIVE (NEGATIVE); Phencyclidine Screen, Urine NEGATIVE (NEGATIVE)
[2020-08-29 20:28] LABS: Cholesterol 235 mg/dL (< 200)
[2020-08-29 20:32] LABS: HDL Cholesterol 118 mg/dL (40-59); LDL Cholesterol 101 mg/dL (< 100); Triglycerides 79 mg/dL (< 150)
[2020-08-29 20:33] VITALS: BP 149/80
[2020-08-29] MEDS: SODIUM CHLOR 0.9% PF (SALINE LOCK) 10ML VIAL/SYR IV SCH (21:59)
[2020-08-29] MEDS: ATORVASTATIN 20 MG TAB PO SCH (21:59)
[2020-08-29] MEDS: methylPREDNISolone SOD SUCC 40 MG/ML VL IV SCH (21:59)
[2020-08-29 22:05] VITALS: BP 125/60
[2020-08-29] MEDS ORDERED: DILT30TA PO (22:34)
[2020-08-29] MEDS ORDERED: CYCL-611 PO (22:34)
[2020-08-29] MEDS ORDERED: PRED10TA PO (22:34)
[2020-08-29] MEDS ORDERED: REVE175S IN (22:34)
[2020-08-29] MEDS ORDERED: SENN1TAB14 PO (22:34)
[2020-08-29] MEDS ORDERED: DOCU100T15 PO (22:34)
[2020-08-29] MEDS ORDERED: LORA0.5T20 PO (22:34)
[2020-08-29] MEDS ORDERED: IPRA0.00 IN (22:34)
[2020-08-29] MEDS ORDERED: ALBU2TAB4 INH (22:34)
[2020-08-29] MEDS ORDERED: GUAI200T2 PO (22:34)
[2020-08-29] MEDS ORDERED: BUDE0.5S IN (22:34)
[2020-08-29] MEDS ORDERED: HYDR-4902 PO ×2 (22:34)
[2020-08-29] MEDS: DOXYCYCLINE 100MG/250ML 250 ML IV SCH (23:28)
[2020-08-30] MEDS: IPRATROPIUM BROM 0.5 MG/2.5ML INH SOL NEB SCH ×6 (02:31→22:01)
[2020-08-30] MEDS: ALBUTEROL SULF 2.5 MG/0.5ML(0.5%) NEB SOLN NEB PRN ×2 (02:31→06:39)
[2020-08-30 05:29] LABS: Basophils # (auto) 0 10 ^3/uL (0-0.2); Basophils % (auto) 0.1 % (0.0-2.0); Eosinophils # (auto) 0 10 ^3/uL (0-0.8); Hematocrit 34.9 % (36.0-46.0); Hemoglobin 11.5 g/dL (12.2-16.2); Lymphocytes # (auto) 1.1 10 ^3/uL (0.4-5.4); Lymphocytes % (auto) 6.3 % (10.0-50.0); Mean Corpuscular Hemoglobin 29.6 pg (28.0-32.0); Mean Corpuscular Hgb Conc. 32.8 g/dL (32.0-36.0); Mean Corpuscular Volume 90.2 fL (80.0-100.0); Monocytes # (auto) 0.3 10 ^3/uL (0-1.3); Monocytes % (auto) 1.7 % (0.0-12.0); Neutrophils # (auto) 16.8 10 ^3/uL (1.6-8.6); Neutrophils % (auto) 91.9 % (37.0-80.0); Nucleated Red Blood Cells % 0.1 %; Platelet Count (auto) 266 10^3/uL (140-450); Red Blood Cells 3.87 10^6/uL (4.0-5.20); Red Cell Distribution Width 15.8 % (11.8-14.3); White Blood Cell 18.2 10^3/uL (4.4-10.8)
[2020-08-30 05:39] VITALS: BP 109/55
[2020-08-30 05:44] LABS: INR 0.92 (0.9-1.15); Partial Thromboplastin Time 21.9 sec (23.0-31.2)
[2020-08-30] MEDS: methylPREDNISolone SOD SUCC 40 MG/ML VL IV SCH ×2 (05:48→21:14)
[2020-08-30] MEDS: SODIUM CHLOR 0.9% PF (SALINE LOCK) 10ML VIAL/SYR IV SCH ×3 (05:48→21:13)
[2020-08-30 05:49] LABS: Chloride 101 mmol/L (98-107); Potassium 4.2 mmol/L (3.5-5.1); Sodium 139 mmol/L (136-145)
[2020-08-30] MEDS ORDERED: FUROSEMIDE 20 MG/2 ML VIAL IV SCH (06:00)
[2020-08-30 06:03] LABS: Alanine Aminotransferase 36 U/L (13-56); Albumin 2.8 g/dL (3.4-5.0); Alkaline Phosphatase 70 U/L (45-117); Anion Gap 6 (5-15); Aspartate Aminotransferase 20 U/L (15-37); BUN/Creatinine Ratio 27.9; Bilirubin, Total 0.3 mg/dL (0.2-1.0); Blood Urea Nitrogen 19 mg/dL (7-18); Calcium 8.5 mg/dL (8.5-10.1); Carbon Dioxide 32 mmol/L (21-32); GFR African American 112 mL/min; GFR Non-African American 93 mL/min; Glucose 190 mg/dL (74-106); Magnesium 2.5 mg/dL (1.6-2.6); Total Protein 5.9 g/dL (6.4-8.2)
[2020-08-30 09:00] VITALS: BP 112/63
[2020-08-30] MEDS ORDERED: ENOXAPARIN SOD 40 MG/0.4 ML SYRINGE SC SCH (10:00)
[2020-08-30] MEDS: DOXYCYCLINE 100MG/250ML 250 ML IV SCH ×2 (10:08→21:14)
[2020-08-30] MEDS: dilTIAZem 120MG ER CAP PO SCH (10:09)
[2020-08-30] MEDS: ENOXAPARIN SOD 40 MG/0.4 ML SYRINGE SC SCH (10:09)
[2020-08-30] MEDS ORDERED: ACETAMINOPHEN 325 MG TAB PO ONE (11:30)
[2020-08-30 13:00] VITALS: BP 145/76
[2020-08-30] MEDS ORDERED: CHOLECALCIFEROL (VITD3) 2,000 UNIT CAP/TAB PO ONE (15:15)
[2020-08-30] MEDS: HYDROcodone-ACET 5/325MG TAB PO PRN (16:27)
[2020-08-30 17:00] VITALS: BP 128/66
[2020-08-30] MEDS: NYSTATIN (MOUTH-THROAT) 500,000 UNITS/5 ML SUSP MT SCH ×2 (18:45→21:14)
[2020-08-30] MEDS: MIRTAZAPINE 30 MG TAB PO SCH (21:15)
[2020-08-30] MEDS: ATORVASTATIN 20 MG TAB PO SCH (21:15)
[2020-08-30 22:00] VITALS: BP 126/68
[2020-08-31] MEDS: IPRATROPIUM BROM 0.5 MG/2.5ML INH SOL NEB SCH ×5 (02:15→18:36)
[2020-08-31 05:00] VITALS: BP 145/79
[2020-08-31] MEDS: SODIUM CHLOR 0.9% PF (SALINE LOCK) 10ML VIAL/SYR IV SCH ×3 (05:40→21:28)
[2020-08-31] MEDS: NYSTATIN (MOUTH-THROAT) 500,000 UNITS/5 ML SUSP MT SCH ×4 (05:40→21:29)
[2020-08-31 06:11] LABS: Hemoglobin 12.1 g/dL (12.2-16.2); Mean Corpuscular Hemoglobin 29.6 pg (28.0-32.0); Mean Corpuscular Hgb Conc. 32.6 g/dL (32.0-36.0); Mean Corpuscular Volume 90.8 fL (80.0-100.0); Platelet Count (auto) 302 10^3/uL (140-450); Red Blood Cells 4.08 10^6/uL (4.0-5.20); Red Cell Distribution Width 15.9 % (11.8-14.3); White Blood Cell 23.8 10^3/uL (4.4-10.8)
[2020-08-31 06:18] LABS: Band Neutrophils % (manual) 0; Basophils % (manual) 0 (0.0-2.0); Blast Cells 0; Eosinophils % (manual) 0 (0-7); Metamyelocytes % 0; Monocytes % (manual) 0 (0-12); Myelocytes % 0; Promyelocytes % 0; Reactive Lymphocytes 0
[2020-08-31] MEDS: ALBUTEROL SULF 2.5 MG/0.5ML(0.5%) NEB SOLN NEB PRN ×3 (06:29→14:17)
[2020-08-31 06:56] LABS: Lymphocytes % (manual) 7 (10.0-50.0)
[2020-08-31 09:00] VITALS: BP 114/60
[2020-08-31] MEDS: methylPREDNISolone SOD SUCC 40 MG/ML VL IV SCH ×2 (09:54→21:29)
[2020-08-31] MEDS: ENOXAPARIN SOD 40 MG/0.4 ML SYRINGE SC SCH (09:55)
[2020-08-31] MEDS: PARoxetine 20 MG TAB PO SCH (09:55)
[2020-08-31] MEDS: CHOLECALCIFEROL (VITD3) 2,000 UNIT CAP/TAB PO SCH (09:55)
[2020-08-31] MEDS: DOXYCYCLINE 100MG/250ML 250 ML IV SCH ×2 (09:55→21:29)
[2020-08-31] MEDS: dilTIAZem 120MG ER CAP PO SCH (09:56)
[2020-08-31 13:00] VITALS: BP 123/75
[2020-08-31] MEDS: HYDROcodone-ACET 5/325MG TAB PO PRN (13:30)
[2020-08-31] MEDS: LORazepam 0.5 MG TAB PO PRN (14:44)
[2020-08-31 17:00] VITALS: BP 145/72
[2020-08-31] MEDS: DOCUSATE SOD 100 MG CAP PO PRN (18:08)
[2020-08-31] MEDS: ATORVASTATIN 20 MG TAB PO SCH (21:29)
[2020-08-31] MEDS: MIRTAZAPINE 30 MG TAB PO SCH (21:30)
[2020-08-31 23:48] VITALS: BP 136/78
[2020-09-01] VITALS (8 sets, daily range): BP systolic 119–149; BP diastolic 52–84
[2020-09-01] MEDS: IPRATROPIUM BROM 0.5 MG/2.5ML INH SOL NEB SCH ×7 (00:26→22:51)
[2020-09-01] MEDS: SODIUM CHLOR 0.9% PF (SALINE LOCK) 10ML VIAL/SYR IV SCH ×3 (05:37→21:52)
[2020-09-01] MEDS: NYSTATIN (MOUTH-THROAT) 500,000 UNITS/5 ML SUSP MT SCH ×4 (05:38→21:52)
[2020-09-01] MEDS: LORazepam 0.5 MG TAB PO PRN ×2 (05:50→13:18)
[2020-09-01] MEDS: methylPREDNISolone SOD SUCC 40 MG/ML VL IV SCH (09:40)
[2020-09-01] MEDS: dilTIAZem 120MG ER CAP PO SCH (09:41)
[2020-09-01] MEDS: ENOXAPARIN SOD 40 MG/0.4 ML SYRINGE SC SCH (09:42)
[2020-09-01] MEDS: CHOLECALCIFEROL (VITD3) 2,000 UNIT CAP/TAB PO SCH (09:42)
[2020-09-01] MEDS: PARoxetine 20 MG TAB PO SCH (09:42)
[2020-09-01] MEDS: DOXYCYCLINE 100MG/250ML 250 ML IV SCH ×2 (09:44→21:52)
[2020-09-01] MEDS: HYDROcodone-ACET 5/325MG TAB PO PRN ×2 (09:45→17:46)
[2020-09-01] MEDS: DOCUSATE SOD 100 MG CAP PO PRN ×2 (10:22→23:35)
[2020-09-01 11:08] LABS: Hematocrit 35.4 % (36.0-46.0); Hemoglobin 11.5 g/dL (12.2-16.2); Mean Corpuscular Hemoglobin 29.5 pg (28.0-32.0); Mean Corpuscular Hgb Conc. 32.4 g/dL (32.0-36.0); Mean Corpuscular Volume 91.1 fL (80.0-100.0); Platelet Count (auto) 290 10^3/uL (140-450); Red Blood Cells 3.88 10^6/uL (4.0-5.20); Red Cell Distribution Width 16.3 % (11.8-14.3); White Blood Cell 24.7 10^3/uL (4.4-10.8)
[2020-09-01 11:12] LABS: Basophils % (manual) 0 (0.0-2.0); Blast Cells 0; Eosinophils % (manual) 0 (0-7); Metamyelocytes % 0; Myelocytes % 0; Promyelocytes % 0; Reactive Lymphocytes 0
[2020-09-01 11:27] LABS: BUN/Creatinine Ratio 46.7; Band Neutrophils % (manual) 6; Calcium 8.5 mg/dL (8.5-10.1); Lymphocytes % (manual) 15 (10.0-50.0); Monocytes % (manual) 2 (0-12); Potassium 4.2 mmol/L (3.5-5.1)
[2020-09-01] MEDS ORDERED: OMNIPAQUE ORAL SOLN 500ml 12mg/ml PO ONE (14:57)
[2020-09-01] MEDS ORDERED: IOHEXOL 300 MG/ML 100ML BOTTLE IJ ONE (16:57)
[2020-09-01] MEDS: BUDESONIDE (INHALATION) 0.5 MG/2 ML NEB NEB SCH (19:31)
[2020-09-01] MEDS: ALBUTEROL SULF 2.5 MG/0.5ML(0.5%) NEB SOLN NEB PRN ×2 (19:31→22:51)
[2020-09-01] MEDS: ATORVASTATIN 20 MG TAB PO SCH (21:53)
[2020-09-01] MEDS: MIRTAZAPINE 30 MG TAB PO SCH (21:53)
[2020-09-01] MEDS: MORPHINE SULF INJ 2 MG/ML SYRINGE 1ML IV PRN (23:35)
[2020-09-02] MEDS: ALBUTEROL SULF 2.5 MG/0.5ML(0.5%) NEB SOLN NEB PRN ×4 (02:07→18:34)
[2020-09-02] MEDS: IPRATROPIUM BROM 0.5 MG/2.5ML INH SOL NEB SCH ×5 (02:08→18:34)
[2020-09-02 05:00] VITALS: BP 137/82
[2020-09-02] MEDS: SODIUM CHLOR 0.9% PF (SALINE LOCK) 10ML VIAL/SYR IV SCH ×2 (05:32→14:00)
[2020-09-02] MEDS: NYSTATIN (MOUTH-THROAT) 500,000 UNITS/5 ML SUSP MT SCH ×3 (05:32→18:00)
[2020-09-02 06:03] LABS: Hematocrit 35.6 % (36.0-46.0); Hemoglobin 11.7 g/dL (12.2-16.2); Mean Corpuscular Hemoglobin 30.2 pg (28.0-32.0); Mean Corpuscular Hgb Conc. 32.9 g/dL (32.0-36.0); Mean Corpuscular Volume 91.6 fL (80.0-100.0); Platelet Count (auto) 277 10^3/uL (140-450); Red Blood Cells 3.89 10^6/uL (4.0-5.20); White Blood Cell 22.1 10^3/uL (4.4-10.8)
[2020-09-02] MEDS: BUDESONIDE (INHALATION) 0.5 MG/2 ML NEB NEB SCH ×2 (06:12→18:34)
[2020-09-02 06:24] LABS: Basophils % (manual) 0 (0.0-2.0); Blast Cells 0; Metamyelocytes % 0; Promyelocytes % 0
[2020-09-02] MEDS: MORPHINE SULF INJ 2 MG/ML SYRINGE 1ML IV PRN (06:46)
[2020-09-02 07:32] LABS: Band Neutrophils % (manual) 6; Eosinophils % (manual) 1 (0-7); Lymphocytes % (manual) 19 (10.0-50.0); Monocytes % (manual) 9 (0-12); Myelocytes % 1; Reactive Lymphocytes 1
[2020-09-02 08:11] VITALS: BP 136/79
[2020-09-02 09:05] VITALS: BP 136/79
[2020-09-02] MEDS: ENOXAPARIN SOD 40 MG/0.4 ML SYRINGE SC SCH (09:52)
[2020-09-02] MEDS: CHOLECALCIFEROL (VITD3) 2,000 UNIT CAP/TAB PO SCH (09:52)
[2020-09-02] MEDS: LORazepam 0.5 MG TAB PO PRN (09:52)
[2020-09-02] MEDS: DOXYCYCLINE 100MG/250ML 250 ML IV SCH (09:52)
[2020-09-02] MEDS: PARoxetine 20 MG TAB PO SCH (09:52)
[2020-09-02] MEDS: dilTIAZem 120MG ER CAP PO SCH (09:53)
[2020-09-02] MEDS ORDERED: predniSONE 20 MG TAB PO SCH (10:00)
[2020-09-02] MEDS: HYDROcodone-ACET 5/325MG TAB PO PRN (11:15)
[2020-09-02 12:41] VITALS: BP 137/87
[2020-09-02] MEDS ORDERED: PRED20TA2 PO (14:59)
[2020-09-02] MEDS ORDERED: CHOL500023 PO (14:59)
[2020-09-02 17:57] VITALS: BP 118/65
== END 2020-09-02 19:38 | disposition home or self-care (01) | DRG 189 ==
LOC: EDUNIT# 11:34 → EDBD 11:34 → ER 11:34 → TELE 14:42 → TELE-WESTW 19:55
PROVIDERS: ADMIT Hospitalist; ATTEND Internal Medicine
PROC: 5A09357 Assistance with Respiratory Ventilation, Less than 24 Consecutive Hours, Continuous Positive Airway Pressure (ICD-10-PCS; principal; 2020-08-29)
PROC: 5A09357 Assistance with Respiratory Ventilation, Less than 24 Consecutive Hours, Continuous Positive Airway Pressure (ICD-10-PCS; 2020-08-30)
PROC: 5A09357 Assistance with Respiratory Ventilation, Less than 24 Consecutive Hours, Continuous Positive Airway Pressure (ICD-10-PCS; 2020-09-01)
PROC: 5A09357 Assistance with Respiratory Ventilation, Less than 24 Consecutive Hours, Continuous Positive Airway Pressure (ICD-10-PCS; 2020-09-02)
DX: J96.21 Acute and chronic respiratory failure with hypoxia (principal); R65.10 Systemic inflammatory response syndrome (SIRS) of non-infectious origin without acute organ dysfunction; I16.9 Hypertensive crisis, unspecified; F11.20 Opioid dependence, uncomplicated; I50.32 Chronic diastolic (congestive) heart failure; Z20.822 Contact with and (suspected) exposure to COVID-19; Z66 Do not resuscitate; Z51.5 Encounter for palliative care; J43.9 Emphysema, unspecified; J20.9 Acute bronchitis, unspecified; G47.33 Obstructive sleep apnea (adult) (pediatric); E78.5 Hyperlipidemia, unspecified; G89.4 Chronic pain syndrome; Z99.81 Dependence on supplemental oxygen; F32.9 Major depressive disorder, single episode, unspecified; E66.9 Obesity, unspecified; K59.04 Chronic idiopathic constipation; K80.20 Calculus of gallbladder without cholecystitis without obstruction; T38.0X5A Adverse effect of glucocorticoids and synthetic analogues, initial encounter; E55.9 Vitamin D deficiency, unspecified; F12.90 Cannabis use, unspecified, uncomplicated; R94.31 Abnormal electrocardiogram [ECG] [EKG]; F41.9 Anxiety disorder, unspecified; I11.0 Hypertensive heart disease with heart failure; Z90.710 Acquired absence of both cervix and uterus; Z82.3 Family history of stroke; Z83.3 Family history of diabetes mellitus; Z90.49 Acquired absence of other specified parts of digestive tract; Z98.51 Tubal ligation status; Z86.711 Personal history of pulmonary embolism; Z79.01 Long term (current) use of anticoagulants; Z79.51 Long term (current) use of inhaled steroids; Z82.49 Family history of ischemic heart disease and other diseases of the circulatory system; Z80.0 Family history of malignant neoplasm of digestive organs; Z68.31 Body mass index [BMI] 31.0-31.9, adult; Z80.1 Family history of malignant neoplasm of trachea, bronchus and lung; Z87.891 Personal history of nicotine dependence; Y92.89 Other specified places as the place of occurrence of the external cause
CPT/HCPCS: 36415; 36600; 51702; 71045; 74177; 80048; 80053; 80061; 80307; 81001; 82306; 82805; 83036; 83605; 83735; 83880; 84100; 84443; 84484; 85007; 85025; 85027; 85379; 85610; 85730; 87040; 87086; 87426; 93005; 93306; 94640; 94644; 94660; 94762; 96365; 96366; 96368; 96375; 97110; 97116; 97530; 99291; G0378; J1956; J3490

== ENCOUNTER 2021-03-03 12:48 | Emergency (ER) | payer OTHER, MEDICAID ==
[~2021-03-03] VITALS: Ht 152.4 cm; Wt 74.8 kg
[~2021-03-03 12:48] MED LIST changes: +ALBU2TAB4 INH; +BUDE0.5S IN; +CHOL500023 PO; +CYCL-611 PO; +DILT30TA PO; +DOCU100T15 PO; +GUAI200T2 PO; +HYDR-4902 PO; +LORA0.5T20 PO; +REVE175S IN; +SENN1TAB14 PO
[2021-03-03 13:36] LABS: Basophils # (auto) 0 10 ^3/uL (0-0.2); Eosinophils # (auto) 0.1 10 ^3/uL (0-0.8); Eosinophils % (auto) 0.4 % (0.0-7.0)
[2021-03-03 13:38] LABS: Basophils % (auto) 0.3 % (0.0-2.0); Hemoglobin 11.2 g/dL (12.2-16.2); Lymphocytes % (auto) 20.9 % (10.0-50.0); Mean Corpuscular Hemoglobin 26.8 pg (28.0-32.0); Mean Corpuscular Hgb Conc. 30.4 g/dL (32.0-36.0); Monocytes # (auto) 1.6 10 ^3/uL (0-1.3); Neutrophils # (auto) 13.7 10 ^3/uL (1.6-8.6); Neutrophils % (auto) 70.4 % (37.0-80.0); Red Cell Distribution Width 17.5 % (11.8-14.3); White Blood Cell 19.4 10^3/uL (4.4-10.8)
[2021-03-03 13:55] LABS: Albumin 3.3 g/dL (3.4-5.0); Calcium 9.2 mg/dL (8.5-10.1)
[2021-03-03 14:00] LABS: Bilirubin, Total 0.2 mg/dL (0.2-1.0); Total Protein 6.9 g/dL (6.4-8.2)
[2021-03-03 14:47] LABS: Urine Bacteria FEW /hpf (None Seen); Urine Blood Negative /uL (Negative); Urine Specific Gravity 1.006 (1.001-1.035); Urine WBC 11 /hpf (0 - 5)
[2021-03-03 15:30] VITALS: BP 154/48
[2021-03-03] MEDS ORDERED: IPRATROPIUM BROM 0.5 MG/2.5ML INH SOL NEB ONE (16:30)
[2021-03-03] MEDS ORDERED: ALBUTEROL SULF 2.5 MG/0.5ML(0.5%) NEB SOLN NEB ONE (16:30)
[2021-03-03] MEDS ORDERED: DexAMETHasone SOD PHOS 10MG/1ML VIAL INJ IM ONE (16:30)
[2021-03-03] MEDS ORDERED: AZIT1POW12 PO (16:35)
[2021-03-03] MEDS ORDERED: PRED20TA2 PO (16:35)
[2021-03-03] MEDS ORDERED: NITR-87 PO (16:35)
== END 2021-03-03 17:28 | disposition home or self-care (01) ==
LOC: ER 12:48 → EDBD 12:48 → ER 17:28
DX: J44.1 Chronic obstructive pulmonary disease with (acute) exacerbation (principal); J20.9 Acute bronchitis, unspecified; N39.0 Urinary tract infection, site not specified; I10 Essential (primary) hypertension; Z90.49 Acquired absence of other specified parts of digestive tract; Z90.710 Acquired absence of both cervix and uterus; Z87.891 Personal history of nicotine dependence; Z20.822 Contact with and (suspected) exposure to COVID-19
CPT/HCPCS: 36415; 71045; 80053; 81001; 83880; 84484; 85025; 87426; 93005; 94640; 96372; 99285; J1100; J7644